=== PATIENT | female | born 1980 | race Caucasian/White ===

== ENCOUNTER 2020-06-12 06:00 | Outpatient (RCR) | payer MEDICARE, MEDICAID, SELFPAY | END 2020-06-17 23:59 | disposition home or self-care (01) | LOC: MPT 06:00 | PROVIDERS: PCP Nurse Practitioner; Referring Provider Podiatrist Foot & Ankle Surgery; Visit Provider Podiatrist Foot & Ankle Surgery | DX: M65.9 Synovitis and tenosynovitis, unspecified (principal); M79.672 Pain in left foot; M67.472 Ganglion, left ankle and foot | CPT/HCPCS: 97110; 97161 ==

== ENCOUNTER 2020-06-18 06:00 | Outpatient (RCR) | payer MEDICARE, MEDICAID, SELFPAY | END 2020-07-18 23:59 | disposition home or self-care (01) | LOC: MPT 06:00 | PROVIDERS: PCP Nurse Practitioner; Referring Provider Podiatrist Foot & Ankle Surgery; Visit Provider Podiatrist Foot & Ankle Surgery | DX: M79.672 Pain in left foot (principal) | CPT/HCPCS: 97110; 97140 ==

== ENCOUNTER → 2022-05-12 09:18 | Outpatient (BNVA) | payer MEDICARE, MEDICAID, SELFPAY | PROVIDERS: PCP Nurse Practitioner; Visit Provider Anesthesiology Pain Medicine | DX: M47.812 Spondylosis without myelopathy or radiculopathy, cervical region (principal) | CPT/HCPCS: 99204 ==

== ENCOUNTER → 2024-09-05 08:45 | Outpatient (BNVA) | payer MEDICARE, MEDICAID, SELFPAY | PROVIDERS: PCP Family Medicine; Visit Provider Podiatrist Foot & Ankle Surgery | DX: M21.621 Bunionette of right foot (principal); M21.611 Bunion of right foot; M62.461 Contracture of muscle, right lower leg | CPT/HCPCS: 73630; 99204 ==

== ENCOUNTER 2024-09-23 05:40 | Day surgery (SDC) | payer MEDICARE, MEDICAID, SELFPAY ==
[2024-09-23] VITALS (13 sets, daily range): BP systolic 132–169; BP diastolic 73–95; PULSE 70–82; RESP 14–27; TEMP 36.1–36.7; O2SAT 95–100; BMI 38.7
[2024-09-23] MEDS: scopolamine 1 mg PATCH 1 PATCH TRANSDERMA (06:29)
[2024-09-23] MEDS: sodium chloride 0.9% 1,000 ML 30 ML IV (06:29)
[2024-09-23] MEDS: CELEcoxib 200 mg Capsule 400 MG PO (06:29)
--- NOTE | 2024-09-23 06:41 | ANES.PREANE2 ---
Pre-Anesthetic Assessment Height/Weight: Height 1.68 m Weight 108.862 kg Temp Pulse Resp BP Pulse Ox O2 Del Method 97.0 F L 70 17 169/95 100 Room Air 09/23/24 06:11 09/23/24 06:11 09/23/24 06:11 09/23/24 06:11 09/23/24 06:11 09/23/24 06:11 Preop Diagnosis: Right equinus, bunion and tailor's bunion. Operation Date: 09/23/24 07:00 Proposed Procedures p RIGHT Juanito / Js Bunionectomy(Right) - Piero Arguelles DPM s RIGHT Bunionectomy Tailors(Right) - DARLENE Thao RIGHT Gastrocnemius Recession(Right) - Piero Arguelles DPM Familial anesthetic complications: None Was Beta Heather taken within 24 hours: N/A Was Clonidine taken within 24 hours: N/A Last intake: Intake Last Liquid Date 09/22/24 Last Liquid Time 21:45 Last Solid Date 09/22/24 Last Solid Time 18:00 Social No alcohol and No tobacco Exam alert, oriented x 3, clear to auscultation bilaterally and regular rate & rhythm Airway Mallampati: Class III Dentition: false GI Gastroesophageal Reflux Disease Hx gastric bypass Metabolic Morbid Obesity Anesthetic Plan ASA status: 2 Anesthesia: MAC Risk of > 500 ml blood loss (7ml/kg in children): No Medications/Allergies Home Medications ?Medication ?Instructions ?Recorded ?Confirmed ?Last Taken ?Type acetaminophen 500 mg tablet 500 mg PO Q6H PRN Pain 05/12/22 09/23/24 09/19/24 History (Tylenol Extra Strength) cyclobenzaprine 10 mg tablet 10 mg PO TID 05/12/22 09/23/24 09/21/24 History ferrous sulfate, dried 144 mg (45 144 mg PO .EVERY OTHER DAY 05/12/22 09/23/24 09/21/24 History mg iron) tablet,extended release (Slow Release Iron) ixekizumab 80 mg/mL subcutaneous 80 mg SUBCUT .MONTHLY 05/12/22 09/23/24 08/31/24 History auto-injector (Taltz Autoinjector) omeprazole 40 mg capsule,delayed 40 mg PO DAILY 05/12/22 09/23/24 Unknown History release ropinirole 1 mg tablet 1 mg PO .HS 05/12/22 09/23/24 09/22/24 History cholecalciferol (vitamin D3) 50 50 mcg PO DAILY 09/22/24 09/23/24 09/21/24 History mcg (2,000 unit) tablet (Vitamin D3) cyanocobalamin (vitamin B-12) 500 500 mcg PO DAILY 09/22/24 09/23/24 09/21/24 History mcg tablet (Vitamin B-12) multivitamin 1 tab PO DAILY 09/22/24 09/23/24 09/21/24 History tirzepatide (weight loss) 5 mg/0.5 5 mg SUBCUT .Q7D 09/22/24 09/23/24 09/12/24 History mL subcutaneous pen injector (Zepbound) Allergies Allergy/AdvReac Type Severity Reaction Status Date / Time methotrexate Allergy Severe ALGY-Hives Verified 09/23/24 06:03 Current Medications Generic Name Dose Route Start Last Admin Trade Name Freq PRN Reason Stop Dose Admin Sodium Chloride 1,000 mls @ 30 mls/hr 09/23/24 06:00 09/23/24 06:29 Sodium Chloride 0.9% IV 09/24/24 05:59 30 mls/hr .Q24H TILA Administration PFSH Anesthesia Social History Smoking and tobacco/nicotine status: never used tobacco/nicotine Quit status (tobacco/nicotine): considering quitting Alcohol intake: current Alcohol intake frequency: holidays/special occasions only Alcohol type: beer Substance/Drug Use: never Female Reproductive History Spontaneous abortions: No
--- NOTE | 2024-09-23 06:49 | W.PM.OPSUD ---
Surgery/Procedure H&P Update DATE OF PROCEDURE: September 23, 2024 DATE H&P PERFORMED: 09/05/24 H&P UPDATE INFORMATION: I have reviewed H&P completed within last 30 days, I have examined patient prior to procedure, No changes to prior documentation and Risks and benefits of the procedure reviewed PREOP DIAGNOSIS: Right equinus, bunion and tailor's bunion. PLANNED PROCEDURE: Operation Date: 09/23/24 07:00 Proposed Procedures p RIGHT Juanito / Js Bunionectomy(Right) - Piero Arguelles DPM s RIGHT Bunionectomy Tailors(Right) - DARLENE Thao RIGHT Gastrocnemius Recession(Right) - Piero Arguelles DPM
[2024-09-23] MEDS: ceFAZolin 2,000 mg SDV 2000 MG IVP (06:54)
[2024-09-23] MEDS: BUPivacaine 0.5% INJ 30 mL XX (07:17)
[2024-09-23] MEDS: BUPivacaine liposome 13.3 mg/mL SDV 20 mL 266 MG INFILTRATI (07:17)
--- NOTE | 2024-09-23 08:11 | W.PM.BPON ---
Date of Procedure: 07/03/23 Surgeon: Piero Arguelles DPM Supervisor Type Disk Quality Control(s): Roopa Procedure(s) performed: Right Juanito bunionectomy, tailor's bunionectomy and gastrocnemius recession all right lower extremity. Findings of the procedure(s): None Estimated blood loss: 5 mL Specimen(s) removed: None Post-operative diagnosis: Gastrocnemius equinus, bunion and tailor's bunion all right lower extremity.
--- NOTE | 2024-09-23 08:12 | P.OP_ITS ---
Operative Report Date of procedure: September 23, 2024 Pre-op diagnosis: Right foot pain M79.671 Tailor's bunion of right foot M21.621 Bunion of great toe of right foot M21.611 Gastrocnemius equinus of right lower extremity M62.461 Post-op diagnosis: Right foot pain M79.671 Tailor's bunion of right foot M21.621 Bunion of great toe of right foot M21.611 Gastrocnemius equinus of right lower extremity M62.461 Procedure done: 1) right Juanito/Js bunionectomy. CPT code 13196 2) right tailor's bunionectomy. CPT code 06113 3) right gastrocnemius recession. CPT code 11827 Implants: Deerfield 3.0 mm headless screw Deerfield 2.0 mm x 12 mm headless screw 3-0 Vicryl, 4-0 Vicryl, 4-0 nylon Specimens removed/disposition: None Pathology: None Surgeon: Piero Arguelles DPM Analytics Consultant: Jac Sierra Estimated blood loss: 5 53 IV fluids: See intraoperative documentation Urine output: None Complications: No complications Brief History: X-ray 3 views AP oblique and lateral clinic 09/05/2024 per my interpretation shows increased 1st and 4th intermetatarsal angle with hallux valgus and hammertoe the fifth digit. No acute osseous injury. 44-year-old female with a history of rheumatoid arthritis presenting with right foot bunion pain. 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 The right foot exhibits deformities consistent with bunion and tailor's bunion. Given her surgical history and current pain level, surgical correction is being considered. 1. Right Foot Bunion A bunionectomy is recommended to alleviate the severe pain and dysfunction caused by the bunion. This involves an incision, bone realignment, and postoperative care with minimal weightbearing for six weeks. 2. Right Foot Tailor's Bunion The tailor's bunion will be addressed through a bunionectomy to realign affected bones, similar postoperative care follows. 3. Rheumatoid Arthritis Management includes holding certain medications before surgery to reduce risks associated with anesthesia and enhance surgical recovery. - Wear post-surgery boot as advised and limit weight-bearing activities for six weeks. - Avoid methotrexate and monoclonal antibody injections the week of surgery. - Expect a phone call a day before surgery detailing arrival time and instructions. - Plan for surgery and recovery logistics, accounting for a six-week minimal activity period following surgery. - Contact the clinic with any questions or concerns before the scheduled surgical date. In considering the complexities of the patient's bunion and tailor's bunion in conjunction with her rheumatoid arthritis, a surgical approach is warranted. Conservative care has failed to alleviate symptoms, and the patient's activity level and lifestyle necessitate a return to function. The surgical plan aims not only to address the structural deformities but also to mitigate the progressive pain compromising the patient?s quality of life. Medication adjustments around the time of surgery focus on optimizing the patient's healing process and minimizing perioperative risks, especially concerning her rheumatoid arthritis management. The decision to undergo surgery aligns with the patient?s goals for significant improvements in pain relief and functional capabilities. I reviewed at length with the patient, the risks, potential complications, benefits, alternatives, expectations, and typical outcomes associated with the surgery. The risks and potential complications were explained in detail, including but not limited to infection, wound dehiscence or soft tissue complications, bleeding and hematoma, chronic edema, neuritis or nerve damage producing numbness or chronic pain, CRPS, failure to relieve pain or worsening pain, thick / painful / unsightly scar, limited motion / stiffness, malposition, delayed union, malunion, or nonunion, fracture, reaction to implants, anesthetic complications, venous thromboembolism, and deformity recurrence. I discussed the notion of no regrets with the patient as it pertains to complications and outcomes. The patient seemed to understand the nature of the proposed care and required convalescence. They asked appropriate questions, answered to their satisfaction. They are aware no guarantees can be made as to a satisfactory outcome and they understand there may be other possible unforeseen complications or outcomes not listed here that will be treated accordingly if they arise. There were no written or implied guarantees given to the patient. They gave informed consent to proceed. Planning on right bunionectomy, right tailor's bunionectomy, right gastrocnemius recession. Procedure: Under mild sedation the patient was brought to the operating room and remained on the gurney in supine position. A timeout was performed. Anesthesia was then administered by the anesthesia service. Local anesthesia injected by myself consisting of 20 cc of 0.5% Marcaine plain and 20 cc of Exparel, Marcaine was utilized in a right Kennedy block and reverse Kennedy block fashion and Exparel was utilized subcutaneously in a grid like fashion proximal to the planned operative sites right foot and leg. Well-padded pneumatic tourniquet applied to the right high calf. Right lower extremity was scrubbed, prepped and draped utilizing normal aseptic technique. Right foot and ankle were then exanguinated with an Esmarch bandage and tourniquet inflated to 250 mmHg. Attention was directed to the medial aspect of the right leg at the gastrocnemius flare and myotendinous juncture distally where a linear longitudinal incision was made approximately 2 cm in length through skin with a #15 blade with dissection carried down to crural fascia utilizing blunt dissection care was taken to retract and preserve neurovascular and tendinous structures. All bleeders were ligated and cauterized as necessary. Crural fascial incision was performed in the interval between the gastrocnemius and soleus muscles was delineated bluntly by hand dissection next a self-retaining retractor was inserted at the interval of the gastrocnemius and psoas muscle and the gastroc aponeurosis was sharply released with Metzenbaum scissors from medial to lateral under direct visualization without any iatrogenic lesions to vessels including arteries and nerves. The incision was irrigated saline solution and crural fascia reapproximated with 3-0 Vicryl, subcutaneous tissue reapproximated 4-0 Vicryl and skin with 4 nylon. Attention was then directed to the bunion deformity the right foot where a incision was made at the dorsal medial aspect of the first metatarsal phalangeal joint medial and parallel to the extensor hallucis longus tendon through skin with a #15 blade with dissection carried down through subcutaneous tissue to the layer of periosteum and joint capsule utilizing a combination of sharp and blunt technique care was taken to retract and preserve neurovascular and tendinous structures. All bleeders were ligated and cauterized as necessary. Capsular incision was performed in a linear fashion and a medial eminence of the first metatarsal head was transected followed by a chevron style osteotomy with apex oriented distally at the metaphyseal diaphyseal junction of the right first metatarsal head and the first metatarsal head was translated laterally in a more anatomically corrected position reducing the intermetatarsal angle and fixated utilizing Deerfield 3 mm headless screw with excellent bony apposition and compression noted, intraoperative mini C arm confirmed excellent placement of hardware and the first metatarsal phalangeal joint not being violated or sesamoids violated by fixation, smooth range of motion appreciated, medial eminence/shelf was transected and all rough edges smoothed with a rasp, lateral release was performed of soft tissue at the lateral aspect of the first metatarsophalangeal joint which demonstrated a rectus first ray. The incision was irrigated with saline solution and closed with capsular structure reapproximated with 3-0 Vicryl, subcutaneous tissue with 4-0 Vicryl and skin with 4-0 nylon. Attention was then directed to the lateral aspect of the right foot where a dorsal lateral incision was performed at the fifth metatarsal phalangeal joint through skin with dissection carried down through subcutaneous tissue to the layer of periosteum and joint capsule utilizing sharp and blunt technique. Care was taken to retract and preserve neurovascular and tendinous structures. All bleeders were ligated and cauterized as necessary. Lateral eminence of the fifth metatarsal head was transected and a oblique osteotomy oriented from distal lateral to proximal medial with a sagittal saw and the head of the fifth metatarsal was translated medially in a more anatomically corrected position and fixated with a 2 mm headless Deerfield screw with excellent bony apposition and compression noted, lateral shelf was transected and all rough edges smoothed. The incision was irrigated with saline solution and the joint capsule reapproximated with 3-0 Vicryl, subcutaneous tissue with 4-0 Vicryl and skin with 4-0 nylon. Corrected bunion and tailor's bunion appreciated with final pictures with C arm in AP oblique and lateral views, increased dorsiflexion post gastrocnemius recession appreciated at the right ankle intraoperatively. All incisions were dressed with Xeroform, sterile 4 x 4 gauze, Kerlix and Herrera wrap followed by application of a cam boot to the right lower extremity. Tourniquet was deflated and a prompt hyperemic response is noted to the distal digits of the right foot. Patient tolerated the procedure and anesthesia well and was transferred to the PACU with vital signs stable and vascular status intact. Following a period of postoperative monitoring she will be discharged home without home care instructions and scheduled follow-up.
[2024-09-23 09:17] LABS: OR HCG Qualitative Urine Negative (Negative)
[2024-09-23] MEDS: HYDROcodone-acetaminophen 10-325 mg Tablet 1 TAB PO (09:18)
[2024-09-23] MEDS: acetaminophen 1,000 MG/100 ML PIGGYBACK 400 MG IV (09:36)
--- NOTE | 2024-09-23 10:00 | ANE.PACU2 ---
Inpatient post-anesthesia follow up: Airway intact: Yes Vital signs: Temperature 97.0 F Pulse Rate 77 Respiratory Rate 16 Blood Pressure 132/79 Pulse Oximetry 98 Oxygen Delivery Me thod Room Air Oxygen Flow Rate 6 Fraction of Inspir ed Oxygen Hydration adequate: Yes Nausea and vomiting: No Pain level: 1 Mental status: Baseline
== END 2024-09-23 10:00 | disposition home or self-care (01) ==
PROVIDERS: Anesthesiology; PCP Family Medicine; Visit Provider Podiatrist Foot & Ankle Surgery
PROC: (CPT 28298; principal; 2024-09-23 07:00)
PROC: 0QBP0ZZ Excision of Left Metatarsal, Open Approach (ICD-10-PCS; CPT 28110; 2024-09-23 07:00)
PROC: (CPT 27687; 2024-09-23 07:00)
DX: M21.611 Bunion of right foot (principal); M21.621 Bunionette of right foot; M62.471 Contracture of muscle, right ankle and foot; Z79.899 Other long term (current) drug therapy; Z79.85 Long-term (current) use of injectable non-insulin antidiabetic drugs
CPT/HCPCS: 28299; 27687; 28110; 81025; C1713; J0131; J0666; J0690; J1100; J1171; J1200; J2250; J2405; J2704; J3010; J3490; J7030; J9999

== ENCOUNTER → 2024-10-06 14:46 | Outpatient (BNVA) | payer MEDICARE, MEDICAID, SELFPAY | PROVIDERS: PCP Family Medicine; Visit Provider Podiatrist Foot & Ankle Surgery | DX: Z98.890 Other specified postprocedural states (principal) | CPT/HCPCS: 73630; 99024 ==

== ENCOUNTER → 2024-10-17 12:34 | Outpatient (BNVA) | payer OTHER, MEDICAID, SELFPAY | PROVIDERS: PCP Family Medicine; Visit Provider Podiatrist Foot & Ankle Surgery | DX: Z98.890 Other specified postprocedural states (principal) | CPT/HCPCS: 73630; 99024 ==

== ENCOUNTER → 2024-11-03 13:58 | Outpatient (BNVA) | payer OTHER, MEDICAID, SELFPAY | PROVIDERS: PCP Family Medicine; Visit Provider Podiatrist Foot & Ankle Surgery | DX: Z98.890 Other specified postprocedural states (principal) | CPT/HCPCS: 73630; 99024 ==

== ENCOUNTER → 2024-11-22 14:15 | Outpatient (BNVA) | payer OTHER, MEDICAID, SELFPAY | PROVIDERS: PCP Family Medicine; Visit Provider Podiatrist Foot & Ankle Surgery | DX: M79.671 Pain in right foot (principal); Z98.890 Other specified postprocedural states | CPT/HCPCS: 73630; 99024 ==

== ENCOUNTER → 2024-12-15 09:38 | Outpatient (BNVA) | payer OTHER, MEDICAID, SELFPAY | PROVIDERS: PCP Family Medicine; Visit Provider Podiatrist Foot & Ankle Surgery | DX: Z98.890 Other specified postprocedural states (principal); M79.671 Pain in right foot | CPT/HCPCS: 73630; 99024 ==

== ENCOUNTER → 2025-01-09 10:34 | Outpatient (BNVA) | payer OTHER, MEDICAID, SELFPAY | PROVIDERS: PCP Family Medicine; Visit Provider Podiatrist Foot & Ankle Surgery | DX: Z98.890 Other specified postprocedural states (principal); S92.354K Nondisplaced fracture of fifth metatarsal bone, right foot, subsequent encounter for fracture with nonunion; X58.XXXD Exposure to other specified factors, subsequent encounter; M96.89 Other intraoperative and postprocedural complications and disorders of the musculoskeletal system | CPT/HCPCS: 73630; 99214 ==

== ENCOUNTER → 2025-01-17 10:00 | Outpatient (BNVA) | payer OTHER, MEDICAID, SELFPAY | PROVIDERS: PCP Family Medicine; Visit Provider Podiatrist Foot & Ankle Surgery | DX: M79.671 Pain in right foot (principal); Z98.890 Other specified postprocedural states; M96.89 Other intraoperative and postprocedural complications and disorders of the musculoskeletal system; S92.354K Nondisplaced fracture of fifth metatarsal bone, right foot, subsequent encounter for fracture with nonunion; X58.XXXD Exposure to other specified factors, subsequent encounter | CPT/HCPCS: 73630; 99213 ==

== ENCOUNTER → 2025-01-30 10:33 | Outpatient (BNVA) | payer OTHER, MEDICAID, SELFPAY | PROVIDERS: PCP Family Medicine; Visit Provider Podiatrist Foot & Ankle Surgery | DX: Z98.890 Other specified postprocedural states (principal) | CPT/HCPCS: 73630 ==

== ENCOUNTER → 2025-02-27 09:29 | Outpatient (BNVA) | payer MEDICARE, MEDICAID, SELFPAY | PROVIDERS: PCP Family Medicine; Visit Provider Podiatrist Foot & Ankle Surgery | DX: M79.671 Pain in right foot (principal); Z98.890 Other specified postprocedural states; S92.354K Nondisplaced fracture of fifth metatarsal bone, right foot, subsequent encounter for fracture with nonunion; M96.89 Other intraoperative and postprocedural complications and disorders of the musculoskeletal system; X58.XXXD Exposure to other specified factors, subsequent encounter | CPT/HCPCS: 73630; 99213 ==

== ENCOUNTER → 2025-03-28 10:01 | Outpatient (BNVA) | payer MEDICARE, MEDICAID, SELFPAY | PROVIDERS: PCP Family Medicine; Visit Provider Podiatrist Foot & Ankle Surgery | DX: Z98.890 Other specified postprocedural states (principal); M79.671 Pain in right foot; S92.354K Nondisplaced fracture of fifth metatarsal bone, right foot, subsequent encounter for fracture with nonunion; M96.89 Other intraoperative and postprocedural complications and disorders of the musculoskeletal system; S92.321D Displaced fracture of second metatarsal bone, right foot, subsequent encounter for fracture with routine healing; X58.XXXD Exposure to other specified factors, subsequent encounter | CPT/HCPCS: 73630; 99213 ==